=== PATIENT | male | born 1950 | race Caucasian/White ===

== ENCOUNTER 2019-01-30 08:17 | Emergency (ER) | payer OTHER ==
[~2019-01-30] VITALS: Ht 185.4 cm; Wt 112.5 kg
--- NOTE | 2019-01-30 08:49 | PHYS DOC ---
Past Medical History Past Medical History: A-Fib, Diabetes-Type II, TIA, Other Additional Past Medical Histor: ' AORTIC ROUTE ENLARGEMENT' Past Surgical History: Appendectomy, Cholecystectomy Alcohol Use: None Drug Use: None Adult General Chief Complaint Chief Complaint: NEURO SYMPTOMS/DEFICITS [facility] Patient is a 69 year old male who presents with complaints of having difficulty speaking. Pt states he was at work and was having trouble finding words. The words that were coming out did not make sense. Onset about 1 hour before arriving to the ED. His issues lasted for around 30 minutes. He denies any weakness, sensory deficits or slurred speech. Pt states that he currently is back to normal and is no longer having trouble speaking. He states he has had prior mini strokes in the past. During these events he states that he could not remember his children names or who Andrey Campa was. PMHx of afib on eliquis and aortic root dilation. [] Review of Systems Review of Systems Constitutional: Denies fever or chills [] Eyes: Denies change in visual acuity, redness, or eye pain [] HENT: Denies nasal congestion or sore throat [] Respiratory: Denies cough or shortness of breath [] Cardiovascular: No additional information not addressed in HPI [] GI: Denies abdominal pain, nausea, vomiting, bloody stools or diarrhea [] : Denies dysuria or hematuria [] Musculoskeletal: Denies back pain or joint pain [] Integument: Denies rash or skin lesions [] Neurologic: Denies headache, focal weakness or sensory changes. Trouble finding words [] Endocrine: Denies polyuria or polydipsia [] All other systems were reviewed and found to be within normal limits, except as documented in this note. Allergies Allergies Allergies Coded Allergies Type Severity Reaction Last Updated Verified No Known Medication Allergies Allergy Unknown 01/30/19 Yes codeine Adverse Reaction Intermediate 01/30/19 Yes Physical Exam Physical Exam Constitutional: Well developed, well nourished, no acute distress, non-toxic appearance. [] HENT: Normocephalic, atraumatic, bilateral external ears normal, oropharynx moist, no oral exudates, nose normal. [] Eyes: PERRLA, EOMI, conjunctiva normal, no discharge. [] Neck: Normal range of motion, no tenderness, supple, no stridor. [] Cardiovascular:Heart rate regular rhythm, no murmur [] Lungs & Thorax: Bilateral breath sounds clear to auscultation [] Abdomen: Bowel sounds normal, soft, no tenderness, no masses, no pulsatile masses. [] Skin: Warm, dry, no erythema, no rash. [] Back: No tenderness, no CVA tenderness. [] Extremities: No tenderness, no cyanosis, no clubbing, ROM intact, no edema. [] Neurologic: Alert and oriented X 3, normal motor function, normal sensory function, no focal deficits noted. Speech clear and fluent. [] Psychologic: Affect normal, judgement normal, mood normal. [] Current Patient Data Vital Signs Vital Signs Date Time Temp Pulse Resp B/P (MAP) Pulse Ox O2 Delivery O2 Flow Rate FiO2 01/30/19 10:30 48 20 94 01/30/19 08:20 97.8 118/72 (87) Room Air 97.8 Lab Values Laboratory Tests Test 01/30/19 08:30 White Blood Count 6.3 x10^3/uL (4.0-11.0) Red Blood Count 4.57 x10^6/uL (4.30-5.70) Hemoglobin 14.0 g/dL (13.0-17.5) Hematocrit 40.8 % (39.0-53.0) Mean Corpuscular Volume 89 fL (79-100) Mean Corpuscular Hemoglobin 31 pg (25-35) Mean Corpuscular Hemoglobin Concent 34 g/dL (31-37) Red Cell Distribution Width 13.9 % (11.5-14.5) Platelet Count 198 x10^3/uL (140-400) Neutrophils (%) (Auto) 62 % (31-73) Lymphocytes (%) (Auto) 24 % (24-48) Monocytes (%) (Auto) 11 % (0-9) H Eosinophils (%) (Auto) 2 % (0-3) Basophils (%) (Auto) 1 % (0-3) Neutrophils # (Auto) 3.9 x10^3uL (1.8-7.7) Lymphocytes # (Auto) 1.5 x10^3/uL (1.0-4.8) Monocytes # (Auto) 0.7 x10^3/uL (0.0-1.1) Eosinophils # (Auto) 0.1 x10^3/uL (0.0-0.7) Basophils # (Auto) 0.1 x10^3/uL (0.0-0.2) Prothrombin Time 13.6 SEC (11.7-14.0) Prothrombin Time INR 1.1 (0.8-1.1) Sodium Level 137 mmol/L (136-145) Potassium Level 4.2 mmol/L (3.5-5.1) Chloride Level 100 mmol/L (98-107) Carbon Dioxide Level 25 mmol/L (21-32) Anion Gap 12 (6-14) Blood Urea Nitrogen 18 mg/dL (8-26) Creatinine 1.4 mg/dL (0.7-1.3) H Estimated GFR (Cockcroft-Gault) 50.0 BUN/Creatinine Ratio 13 (6-20) Glucose Level 229 mg/dL (70-99) H Glucose (Fingerstick) 212 mg/dL (70-99) H Calcium Level 8.4 mg/dL (8.5-10.1) L Total Bilirubin 0.5 mg/dL (0.2-1.0) Aspartate Amino Transferase (AST) 18 U/L (15-37) Alanine Aminotransferase (ALT) 30 U/L (16-63) Alkaline Phosphatase 86 U/L (46-116) Troponin I Quantitative < 0.017 ng/mL (0.000-0.055) Total Protein 6.9 g/dL (6.4-8.2) Albumin 3.8 g/dL (3.4-5.0) Albumin/Globulin Ratio 1.2 (1.0-1.7) Laboratory Tests 01/30/19 08:30 Laboratory Tests 01/30/19 08:30 EKG EKG [] Interpretation Time: Sinus rhythm 55. Normal interval. No ischemia. Radiology/Procedures Radiology/Procedures [] Impressions: IMPRESSION: Velocities and ratios consistent with less than 50 percent stenosis of the bilateral ICAs. mpression: 1. No acute intracranial process. Of note, MRI is more sensitive for acute infarction less than 24 hours in age. 2. Mild cerebral volume loss. Mild chronic small vessel ischemic disease. Electronically signed by: Hiram Hill MD (01/30/2019 9:17 AM) [facility] Course & Med Decision Making Course & Med Decision Making Pertinent Labs and Imaging studies reviewed. (See chart for details) Pt is currently speaking clearly and fluent without any neurologic deficits on exam. Will watch pt and get EKG, cardiac enzymes, labs, CT head and Doppler of carotids. Patient is a stroke scale of 0 he has had TIA before he is on Pre[facility] I offered admission intact I did recommended however he really wants to go home as such we did do a carotid ultrasound to clear his carotids and those are clear less than 50% stenosis he is asymptomatic in the ER he is on Pre[facility] advised to continue that his blood pressure is normal recommended follow-up with primary care doctor next week he is comfortable with the plan Dragon Disclaimer Dragon Disclaimer This electronic medical record was generated, in whole or in part, using a voice recognition dictation system. Departure Departure Impression: Primary Impression: Transient ischemic attack Disposition: HOME, SELF-CARE Condition: STABLE NIHSS Stroke Scale NIH Stroke Scale: NIH Stroke Scale Response (Comments) Value Level of Consciousness: 0 Alert/Responsive 0 LOC Questions: 0 Answers both correctly 0 LOC Commands: 0 Performs both tasks 0 Best Gaze: 0 Normal 0 Visual: 0 No visual loss 0 Facial Palsy: 0 Normal, symmetrical 0 Motor - Left Arm 0 No drift 0 Motor - Right Arm 0 No drift 0 Motor - Left Leg 0 No drift 0 Motor: Right Leg 0 No drift 0 Limb Ataxia: 0 Absent 0 Sensory: 0 No loss 0 Best Language: 0 Normal 0 Dysathria: 0 Normal 0 Extinction and Inattention: 0 Normal 0 Total 0 OMAYRA CLEMONS MD Jan 30, 2019 08:49
--- NOTE | 2019-01-30 08:51 | EKG ---
[facility] [address] [place] [address] Test Date: 2019-01-30 Test Time: 08:42:23 Pat Name: HARDEEP ZUNIGA Department: Room: Gender: M Printed Forms Proofreader: : [id number] Requested By: OMAYRA CLEMONS Order Number: [id number] Reading MD: Fredy Patel MD Measurements Intervals [place] Rate: 55 P: 34 W[place]: 184 QRS: -16 QRSD: 104 T: 36 QT: 414 QTc: 398 Interpretive Statements SINUS RHYTHM Electronically Signed On 02-02-2019 15:14:32 CDT by Fredy Patel MD
[2019-01-30 08:52] LABS: BASO # 0.1 x10^3/uL (0.0-0.2); BASO % 1 % (0-3); EOS # 0.1 x10^3/uL (0.0-0.7); EOS % 2 % (0-3); HEMATOCRIT 40.8 % (39.0-53.0); LYMPH # 1.5 x10^3/uL (1.0-4.8); LYMPH % 24 % (24-48); MEAN CORPUSCULAR HEMOGLOBIN 31 pg (25-35); MEAN CORPUSCULAR HGB CONC 34 g/dL (31-37); MEAN CORPUSCULAR VOLUME 89 fL (79-100); MONO # 0.7 x10^3/uL (0.0-1.1); MONO % 11 % (0-9); NEUT # 3.9 x10^3uL (1.8-7.7); NEUT % 62 % (31-73); PLATELET COUNT 198 x10^3/uL (140-400); RED BLOOD COUNT 4.57 x10^6/uL (4.30-5.70); RED CELL DISTRIBUTION WIDTH 13.9 % (11.5-14.5); WHITE BLOOD COUNT 6.3 x10^3/uL (4.0-11.0)
[2019-01-30 09:03] LABS: PROTHROMBIN TIME PATIENT 13.6 SEC (11.7-14.0)
[2019-01-30 09:07] LABS: CALCIUM 8.4 mg/dL (8.5-10.1); CREATININE 1.4 mg/dL (0.7-1.3); POTASSIUM 4.2 mmol/L (3.5-5.1)
[2019-01-30 09:14] LABS: ALBUMIN 3.8 g/dL (3.4-5.0); ALBUMIN/GLOBULIN RATIO 1.2 (1.0-1.7); TOTAL BILIRUBIN 0.5 mg/dL (0.2-1.0); TOTAL PROTEIN 6.9 g/dL (6.4-8.2)
--- NOTE | 2019-01-30 09:20 | RAD ---
CT HEAD WO CONTRAST Date: 01/30/2019 8:39 AM Clinical Indication: slurred speech, history of TIA Comparison: None. Technique: 5 mm axial tomographic images were obtained of the head without contrast. These were viewed on brain and bone windows. Findings: Mild generalized cerebral and cerebellar volume loss. Mild nonspecific periventricular hypoattenuation, most commonly seen with chronic small vessel ischemic disease. No intra- or extra-axial mass or fluid collection. No acute hemorrhage. The ventricles are normal in size, shape, and morphology. The anderson-white matter junction is normal. The basilar cisterns are patent. The visualized paranasal sinuses are normal. The visualized portions of the orbits and globes are normal. The mastoid air cells are clear. No aggressive osseous lesion or fracture. Impression: 1. No acute intracranial process. Of note, MRI is more sensitive for acute infarction less than 24 hours in age. 2. Mild cerebral volume loss. Mild chronic small vessel ischemic disease. Electronically signed by: Hiram Hill MD (01/30/2019 9:17 AM) [facility]
--- NOTE | 2019-01-30 11:54 | RAD ---
BILATERAL DUPLEX CAROTID SONOGRAPHY History: TIA, SPEECH DIFFICULTIES Technique: Duplex sonography of the cervical portion of both carotid arteries was performed. Real-time grayscale, color flow Doppler, and Doppler spectral waveform analysis is performed. Findings: Right side: Peak systolic flow velocity of the distal CCA is 70 cm/sec. Peak systolic flow velocity of the ICA is 56 cm/sec. The ICA/CCA ratio is 0.8. Peak end diastolic flow velocity of the ICA is 25 cm/sec. The peak systolic velocity of the ECA is 92 cm/sec. Mild plaque formation is identified. Left side: Peak systolic flow velocity of the distal CCA is 83 cm/sec. Peak systolic flow velocity of the ICA is 62 cm/sec. The ICA/CCA ratio is 0.7. Peak end diastolic flow velocity of the ICA is 25 cm/sec. Peak systolic flow velocity of the ECA is 77 cm/sec. Mild plaque formation is identified. Vertebral arteries: Bilateral vertebral arteries demonstrate antegrade flow. IMPRESSION: Velocities and ratios consistent with less than 50 percent stenosis of the bilateral ICAs. <50% ICA Stenosis: PSV < 125cm/s (EDV < 40cm/s; SVR < 2.0) 50-69% ICA Stenosis: PSV < 125-229cm/s (EDV 40-99cm/s; SVR 2.0-3.9) >70% ICA Stenosis: PSV > 230cm/s (EDV >100cm/s; SVR >4.0) PQRS Compliance Statement - Stenosis calculations for CT, MR and conventional angiography are based upon measurement of the distal ICA diameter in accordance with the NASCET methodology. Stenosis calculations for carotid ultrasound studies are derived from validated velocity criteria which are known to correlate with the NASCET methodology. Electronically signed by: Hiram Hill MD (01/30/2019 11:51 AM) [facility]
[2019-01-30 12:00] VITALS: BP 110/64
== END 2019-01-30 11:58 | disposition home or self-care (01) ==
LOC: ER 08:17
DX: G45.9 Transient cerebral ischemic attack, unspecified (principal); I48.91 Unspecified atrial fibrillation; E11.9 Type 2 diabetes mellitus without complications; Z86.73 Personal history of transient ischemic attack (TIA), and cerebral infarction without residual deficits; Z88.5 Allergy status to narcotic agent
CPT/HCPCS: 36415; 70450; 80053; 82962; 84484; 85025; 85610; 93005; 93880; 99284-25